=== PATIENT | female | born 1975 | race Caucasian/White ===

== ENCOUNTER 2018-07-18 15:45 | Emergency (ER) | payer MEDICAID ==
[~2018-07-18] VITALS: Ht 151.1 cm; Wt 56.8 kg
[2018-07-18 16:19] VITALS: BP 144/90; Ht 151.1 cm; Wt 56.8 kg
[2018-07-18] MEDS ORDERED: SEROQUEL300 MG PO (16:24)
[2018-07-18] MEDS ORDERED: CARBIDOPA-LEVO1 EAC2 PO (16:24)
[2018-07-18] MEDS ORDERED: KLONOPIN1 MG PO (16:25)
[2018-07-18] MEDS ORDERED: TYLENOL W/CODEI1 TAB PO (16:25)
[2018-07-18] MEDS ORDERED: EFFEXOR50 MG PO (16:25)
[2018-07-18] MEDS ORDERED: ZESTRIL40 MG PO (16:25)
[2018-07-18 17:31] LABS: HEMATOCRIT 33.7 % (36.0-48.0); HEMOGLOBIN 11.2 g/dL (12-16); MCH 32.6 pg (26.0-34.0); MCHC 33.2 g/dL (31.0-37.0); MEAN PLATELET VOLUME 10.4 fL (7.4-10.4); RBC 3.44 10x6/uL (4.00-5.40); RDW 13.8 % (11.5-14.5); WBC 6.4 10x3/uL (4.8-10.8)
[2018-07-18 17:34] LABS: PLATELET COUNT 127 10x3/uL (130-400)
[2018-07-18 17:45] LABS: APPEARANCE CLEAR (CLEAR); BILIRUBIN NEGATIVE (NEGATIVE); COLOR YELLOW (YELLOW); GLUCOSE NEGATIVE (NEGATIVE); KETONE NEGATIVE (NEGATIVE); NITRITE NEGATIVE (NEGATIVE); PROTEIN NEGATIVE (NEGATIVE); UROBILINOGEN NORMAL (NORMAL)
[2018-07-18 17:46] LABS: BACTERIA FEW /hpf (NONE SEEN); EPITHELIAL CELLS 0-5 /hpf (0-5); RED CELLS - URINE OCC /hpf (0-5)
[2018-07-18 17:55] LABS: ALBUMIN 3.5 g/dL (3.4-5.0); ANION GAP 15.1 mmol/L (8-16); BILIRUBIN - TOTAL 0.12 mg/dL (0.2-1.3); CALCIUM 8.3 mg/dL (8.5-10.1); CARBON DIOXIDE 24.3 mmol/L (21.0-32.0); CREATININE - SERUM 0.9 mg/dL (0.6-1.3); POTASSIUM - SERUM 3.4 mmol/L (3.5-5.1); PROTEIN - SERUM 6.9 g/dL (6.4-8.2)
[2018-07-18 18:03] LABS: EOSINOPHILS 5 % (0-7); LYMPHOCYTES 56 % (15-50); MONOCYTES 1 % (2-11); NEUTROPHILS 38 % (40-80); PLATELET ESTIMATE NORMAL
== END 2018-07-18 21:39 | disposition left against medical advice (07) ==
LOC: D.ER 15:45
PROVIDERS: Family Medicine
DX: R10.9 Unspecified abdominal pain (principal); R30.0 Dysuria; I10 Essential (primary) hypertension